=== PATIENT | male | born 1960 | race Asian ===

== ENCOUNTER 2019-05-20 05:26 | Day surgery (SDC) | payer OTHER ==
[~2019-05-20] VITALS: Ht 160 cm; Wt 78.3 kg
[2019-05-20] VITALS (13 sets, daily range): BP systolic 116–142; BP diastolic 78–91; PULSE 72–88; RESP 11–20; Ht 160 cm; Wt 78.3 kg
[2019-05-20] MEDS ORDERED: SOD CHLORIDE 0.9% 1,000 ML IV SCH (07:00)
[2019-05-20] MEDS ORDERED: CEFAZOLIN 2 GM/50 ML (PMX) 50 ML IVPB ONE (07:00)
[2019-05-20] MEDS ORDERED: BUPIVACAINE 0.25% (MPF) 30 ML INJ ONE (07:06)
[2019-05-20] MEDS ORDERED: BUPIVACAINE 0.5% (SDV) 30 ML INJ ONE (07:06)
[2019-05-20] MEDS ORDERED: LIDOCAINE 2% (MDV) 20 ML INJ ONE (07:06)
--- NOTE | 2019-05-20 07:42 | PREAC ---
Date/Time of Note Date/Time of Note DATE: 05/20/19 TIME: 07:41 Anesthesia Eval and Record Evaluation Time Pre-Procedure Interview DATE: 05/20/19 TIME: 07:41 Age 59 Sex male NPO: 8 hrs Preoperative diagnosis chest mass Planned procedure excision Past Medical History Past Medical History: Includes Endo: Diabetes GI: Obesity Surgery & Anesthesia Issues No known issue Meds Anticoagulation: No Beta Noreen within 24 hr: No Reason Beta Noreen not given: Pt. not on B-Noreen No Active Prescriptions or Reported Meds Current Medications Sodium Chloride 1,000 ml @ 75 mls/hr [id number] IV ; Start 05/20/19 at 07:00 Meds reviewed: Yes Allergies Coded Allergies: No Known Allergy (Unverified , 05/20/19) Allergies Reviewed: Yes Labs/Studies Labs Reviewed: Reviewed by anesthesiologist test: N/A Pre-procedure Exam Last vitals Vital Signs Date Temp Pulse Resp B/P (MAP) Pulse Ox O2 O2 Flow FiO2 Time Delivery Rate 05/20/19 96.9 79 18 142/85 95 Room Air 06:29 (104) Airway: Adequate mouth opening, Adequate thyromental dist Mallampati: Mallampati IV Teeth: Normal Lung: Normal Heart: Normal ASA Physical Status ASA physical status: 2 Emergency: None Pre-operative Attestations Prior to commencing anesthesia and surgery, the patient was re-evaluated, there was verification of: *The patient's identity *The results of appropriate recent lab work and preoperative vital signs *The above evaluation not changing prior to induction *Anesthetic plan, risk benefits, alternative and complications discussed with patient/family; questions answered; patient/family understands, accepts and wishes to proceed. VALERIE EDWARDS DO May 20, 2019 07:42
[2019-05-20] MEDS ORDERED: PROPOFOL 20 ML ONE (07:53)
[2019-05-20] MEDS ORDERED: LIDOCAINE 1% (MDV) 20 ML INJ ONE (07:54)
[2019-05-20] MEDS ORDERED: MIDAZOLAM 1 MG/ML 2 ML INJ ONE (07:54)
[2019-05-20] MEDS ORDERED: ONDANSETRON 4 MG INJ ONE (08:06)
[2019-05-20] MEDS ORDERED: CEFAZOLIN 1 GM INJ ONE (08:10)
--- NOTE | 2019-05-20 08:41 | OPR ---
Date/Time of Note Date/Time of Note DATE: 05/20/19 TIME: 08:38 Operative Report Procedure Date: May 20, 2019 Preoperative Diagnosis left chest mass Postoperative Diagnosis same Operation/Procedure Performed 1. excision of left chest mass 8 cm mass 10 cm incision 2. localized adjacent tissue transfer with the use of skin flaps 30 sq cm defect of left chest 3. therapeutic injection of subcutaneous local anesthesia Surgeon see signature line Php Lamp Developer none Anesthesia Type: general Estimated Blood Loss: 0 - 10 ml's Transfusion none Specimen left chest mass Grafts/Implants none Complications none Pt Condition Post Procedure: stable Indications This is a 5-year-old male with painful left chest mass. He request surgical excision of the mass. Risks alternatives benefits and personal were discussed the patient. Potential complications including but not limited to bleeding infection wound dehiscence recurrence of mass were discussed the patient. Patient expressed understanding consents to the operation. Procedure Description Patient is taken to the OR and prepped and draped in usual sterile fashion. Surgical timeout is performed. IV antibiotics given. Elliptical incision was made over the left chest mass with a 10 blade. Dissection with cautery skin onto the mass and the mass was circumferentially excised off the muscle. Good hemostasis established. Due to large tissue defect localized adjacent to his transfer with these of skin flaps were performed. Multilayer closed with interrupted 2-0 Vicryl and skin rick. Therapeutic subcutaneous local anesthesia was injected at the incision site. Dry dressings were applied. Manuel BROWN May 20, 2019 08:41
--- NOTE | 2019-05-20 08:47 | PAC ---
Date/Time of Note Date/Time of Note DATE: 05/20/19 TIME: 08:47 Post-Anesthesia Notes Post-Anesthesia Note Last documented vital signs Vital Signs Date Temp Pulse Resp B/P (MAP) Pulse Ox O2 O2 Flow FiO2 Time Delivery Rate 05/20/19 96.9 79 18 142/85 95 Room Air 06:29 (104) Activity: WNL Respiratory function: WNL Cardiovascular function: WNL Mental status: Baseline Pain reasonably controlled: Yes Hydration appropriate: Yes Nausea/Vomiting absent: Yes VALERIE EDWARDS DO May 20, 2019 08:47
[2019-05-20] MEDS ORDERED: HYDROmorphONE 1 MG/5 ML IV SYRINGE IV PRN ×3 (09:00)
[2019-05-20] MEDS ORDERED: HYDROCODONE/APAP (5/325) TAB PO ONE (09:00)
[2019-05-20] MEDS ORDERED: HYDROCODONE/APAP (5/325) TAB ONE (09:08)
== END 2019-05-20 10:12 | disposition home or self-care (01) ==
LOC: SDS 05:26
PROVIDERS: ATTEND Surgery
DX: D17.1 Benign lipomatous neoplasm of skin and subcutaneous tissue of trunk (principal); L72.0 Epidermal cyst; E66.9 Obesity, unspecified; E11.9 Type 2 diabetes mellitus without complications
CPT/HCPCS: 14001; 82962; J0690; J2250; J2405; J3010; Z7610; 88307